=== PATIENT | female | born 1965 | race Caucasian/White ===

== ENCOUNTER → 2024-01-15 07:01 | Outpatient (REF) | payer BC, SELFPAY ==
[2024-01-15 09:58] LABS: % Basophils 0.7 % (0-2); % Eosinophils 4.6 % (0-6); % Immature Granulocytes 0.6 % (0-0.5); % Lymphocytes 11.3 % (20.5-51.1); % Monocytes 12.9 % (1.7-9.3); % Neutrophils 69.9 % (42.2-75.2); Absolute Basophils 0.1 10^3/uL (0-0.2); Absolute Eosinophils 0.3 10^3/uL (0-0.7); Absolute Lymphocytes 0.8 10^3/uL (1.2-3.4); Absolute Monocytes 0.9 10^3/uL (0.1-0.6); Absolute Neutrophils 4.9 10^3/uL (1.4-6.5); Hematocrit 45.1 % (37.0-47.0); Hemoglobin 14.8 g/dL (12.0-16.0); Mean Corp Hgb Conc. 32.8 g/dL (33.0-37.0); Mean Corpuscular Hgb 29.3 pg (27.0-31.0); Mean Corpuscular Volume 89.3 fL (81.0-99.0); Mean Platelet Volume 10.3 fL (7.4-10.4); Nucleated Red Blood Cells % 0 %; Platelet Count 303 10^3/uL (130-400); Red Blood Cell Count 5.05 10^6/uL (4.20-5.40); Red Cell Dist. Width 13.2 % (11.5-14.5)
[2024-01-15 10:30] LABS: ALT (SGPT) 35 U/L (0-35); AST (SGOT) 42 U/L (14-36); Alkaline Phosphatase 108 U/L (38-126); Blood Urea Nitrogen 14 mg/dl (7-17); Carbon Dioxide 27 mmol/L (22-30); Chloride 101 mmol/L (98-107); Creatine Phosphokinase 238 U/L (30-135); Glucose 102 mg/dl (70-99); Potassium 4.6 mmol/L (3.5-5.1); Sodium 135 mmol/L (135-145); Total Bilirubin 0.4 mg/dl (0.2-1.3); Total Protein 7.3 g/dl (6.3-8.2); eGFR > 60.00
[2024-01-15 10:42] LABS: Vitamin D, 25-OH*** 19.1 ng/mL (30-80)
[2024-01-15 10:46] LABS: Erythrocyte Sed Rate 26 mm/hour (0-20)
== END ==
LOC: HWLAB 07:01
PROVIDERS: ATTENDING PHYSICIAN Internal Medicine Rheumatology; FAMILY PHYSICIAN Internal Medicine
DX: E55.9 Vitamin D deficiency, unspecified (principal); M33.20 Polymyositis, organ involvement unspecified; M35.00 Sjogren syndrome, unspecified; R74.8 Abnormal levels of other serum enzymes
CPT/HCPCS: 36415; 80053; 82085; 82306; 82550; 85025; 85652; 86140

== ENCOUNTER → 2024-03-18 15:39 | Outpatient (REF) | payer BC, SELFPAY | LOC: HWRCS 15:39 | PROVIDERS: ATTENDING PHYSICIAN Nurse Practitioner Acute Care | DX: J84.9 Interstitial pulmonary disease, unspecified (principal) | CPT/HCPCS: 93306 ==

== ENCOUNTER → 2024-06-10 09:48 | Outpatient (REF) | payer BC, SELFPAY ==
[2024-06-10 10:55] LABS: % Basophils 0.8 % (0-2); % Eosinophils 5.2 % (0-6); % Immature Granulocytes 0.8 % (0-0.5); % Lymphocytes 12.7 % (20.5-51.1); % Monocytes 12.8 % (1.7-9.3); % Neutrophils 67.7 % (42.2-75.2); Absolute Basophils 0.1 10^3/uL (0-0.2); Absolute Eosinophils 0.4 10^3/uL (0-0.7); Absolute Immature Granulocytes 0.1 10^3/uL (0-0.05); Absolute Lymphocytes 0.9 10^3/uL (1.2-3.4); Absolute Monocytes 0.9 10^3/uL (0.1-0.6); Hematocrit 41.9 % (37.0-47.0); Hemoglobin 13.8 g/dL (12.0-16.0); Mean Corp Hgb Conc. 32.9 g/dL (33.0-37.0); Mean Corpuscular Hgb 29.1 pg (27.0-31.0); Mean Corpuscular Volume 88.2 fL (81.0-99.0); Mean Platelet Volume 9.4 fL (7.4-10.4); Nucleated Red Blood Cells % 0 %; Platelet Count 338 10^3/uL (130-400); Red Blood Cell Count 4.75 10^6/uL (4.20-5.40); Red Cell Dist. Width 13.2 % (11.5-14.5); White Blood Cell Count 7.3 10^3/uL (4.8-10.8)
[2024-06-10 11:09] LABS: Erythrocyte Sed Rate 32 mm/hour (0-20)
[2024-06-10 11:54] LABS: ALT (SGPT) 23 U/L (0-35); AST (SGOT) 33 U/L (14-36); Albumin 4.4 g/dl (3.5-5.0); Alkaline Phosphatase 102 U/L (38-126); Blood Urea Nitrogen 10 mg/dl (7-17); Calcium 10.1 mg/dl (8.4-10.2); Carbon Dioxide 25 mmol/L (22-30); Chloride 99 mmol/L (98-107); Creatine Phosphokinase 104 U/L (30-135); Glucose 82 mg/dl (70-99); Potassium 4.2 mmol/L (3.5-5.1); Sodium 140 mmol/L (135-145); Total Bilirubin 0.6 mg/dl (0.2-1.3); Total Protein 7.2 g/dl (6.3-8.2); eGFR > 60.00
== END ==
LOC: HWLAB 09:48
PROVIDERS: ATTENDING PHYSICIAN Internal Medicine Rheumatology; FAMILY PHYSICIAN Internal Medicine
DX: M33.20 Polymyositis, organ involvement unspecified (principal)
CPT/HCPCS: 36415; 80053; 82550; 85025; 85652; 86140

== ENCOUNTER → 2024-09-29 10:38 | Outpatient (REF) | payer BC, SELFPAY ==
[2024-09-29 15:37] LABS: ALT (SGPT) 29 U/L (0-35); AST (SGOT) 35 U/L (14-36); Albumin 3.9 g/dl (3.5-5.0); Alkaline Phosphatase 90 U/L (38-126); Blood Urea Nitrogen 10 mg/dl (7-17); Calcium 9.6 mg/dl (8.4-10.2); Carbon Dioxide 29 mmol/L (22-30); Chloride 98 mmol/L (98-107); Glucose 93 mg/dl (70-99); Potassium 3.9 mmol/L (3.5-5.1); Sodium 134 mmol/L (135-145); Total Bilirubin 0.5 mg/dl (0.2-1.3); Total Protein 6.8 g/dl (6.3-8.2); eGFR > 60.00
[2024-09-29 15:47] LABS: Creatine Phosphokinase 239 U/L (30-135)
[2024-09-29 15:58] LABS: % Basophils 0.6 % (0-2); % Eosinophils 4.3 % (0-6); % Immature Granulocytes 0.5 % (0-0.5); % Lymphocytes 8.6 % (20.5-51.1); % Monocytes 12.8 % (1.7-9.3); % Neutrophils 73.2 % (42.2-75.2); Absolute Basophils 0.1 10^3/uL (0-0.2); Absolute Eosinophils 0.4 10^3/uL (0-0.7); Absolute Lymphocytes 0.7 10^3/uL (1.2-3.4); Absolute Monocytes 1.1 10^3/uL (0.1-0.6); Absolute Neutrophils 6.2 10^3/uL (1.4-6.5); Hematocrit 45.8 % (37.0-47.0); Hemoglobin 14.3 g/dL (12.0-16.0); Mean Corp Hgb Conc. 31.2 g/dL (33.0-37.0); Mean Corpuscular Hgb 29.1 pg (27.0-31.0); Mean Corpuscular Volume 93.1 fL (81.0-99.0); Mean Platelet Volume 9.7 fL (7.4-10.4); Nucleated Red Blood Cells % 0 %; Platelet Count 292 10^3/uL (130-400); Red Blood Cell Count 4.92 10^6/uL (4.20-5.40); Red Cell Dist. Width 13.2 % (11.5-14.5); White Blood Cell Count 8.5 10^3/uL (4.8-10.8)
[2024-09-29 16:03] LABS: Vitamin D, 25-OH*** 25.8 ng/mL (30-80)
[2024-09-29 16:36] LABS: Erythrocyte Sed Rate 25 mm/hour (0-20)
== END ==
LOC: HWLAB 10:38
PROVIDERS: ATTENDING PHYSICIAN Internal Medicine Rheumatology; FAMILY PHYSICIAN Internal Medicine
DX: E55.9 Vitamin D deficiency, unspecified (principal); M33.20 Polymyositis, organ involvement unspecified; M35.00 Sjogren syndrome, unspecified; M81.0 Age-related osteoporosis without current pathological fracture
CPT/HCPCS: 36415; 80053; 82306; 82550; 85025; 85652; 86140

== ENCOUNTER → 2025-03-02 06:18 | Outpatient (REF) | payer BC, SELFPAY ==
[2025-03-02 09:37] LABS: % Basophils 0.5 % (0-2); % Immature Granulocytes 0.4 % (0-0.5); % Lymphocytes 5.9 % (20.5-51.1); % Monocytes 6.9 % (1.7-9.3); % Neutrophils 83.3 % (42.2-75.2); Absolute Basophils 0.1 10^3/uL (0-0.2); Absolute Eosinophils 0.3 10^3/uL (0-0.7); Absolute Lymphocytes 0.7 10^3/uL (1.2-3.4); Absolute Monocytes 0.8 10^3/uL (0.1-0.6); Absolute Neutrophils 9.2 10^3/uL (1.4-6.5); Hematocrit 43.5 % (37.0-47.0); Hemoglobin 13.9 g/dL (12.0-16.0); Mean Corpuscular Hgb 28.5 pg (27.0-31.0); Mean Corpuscular Volume 89.3 fL (81.0-99.0); Nucleated Red Blood Cells % 0 %; Platelet Count 363 10^3/uL (130-400); Red Blood Cell Count 4.87 10^6/uL (4.20-5.40); Red Cell Dist. Width 13.6 % (11.5-14.5)
[2025-03-02 11:00] LABS: ALT (SGPT) 16 U/L (0-35); AST (SGOT) 23 U/L (14-36); Albumin 3.9 g/dl (3.5-5.0); Alkaline Phosphatase 96 U/L (38-126); Blood Urea Nitrogen 9 mg/dl (7-17); Calcium 9.8 mg/dl (8.4-10.2); Carbon Dioxide 26 mmol/L (22-30); Chloride 103 mmol/L (98-107); Creatine Phosphokinase 61 U/L (30-135); Glucose 100 mg/dl (70-99); Potassium 4.7 mmol/L (3.5-5.1); Sodium 139 mmol/L (135-145); Total Bilirubin 0.6 mg/dl (0.2-1.3); Total Protein 6.9 g/dl (6.3-8.2); eGFR > 60.00
[2025-03-02 11:37] LABS: Erythrocyte Sed Rate 37 mm/hour (0-20)
== END ==
LOC: HWLAB 06:18
PROVIDERS: ATTENDING PHYSICIAN Internal Medicine Rheumatology; FAMILY PHYSICIAN Internal Medicine
DX: M33.20 Polymyositis, organ involvement unspecified (principal); M35.00 Sjogren syndrome, unspecified
CPT/HCPCS: 36415; 80053; 82550; 85025; 85652; 86140

== ENCOUNTER 2025-03-29 07:01 | Emergency (ER) | payer BC, SELFPAY ==
[2025-03-29 07:02] VITALS: BP 110/65
[2025-03-29 07:18] VITALS: BP 136/74
[2025-03-29 07:21] VITALS: BMI 18.3
--- NOTE | 2025-03-29 07:45 | ED.GENMED ---
History of Present Illness
<Madhav Rivers MD - Last Filed: 03/29/25 09:57>
General
Chief Complaint: Breathing Problem
Time Seen by Provider: 03/29/25 07:16
History of Present Illness
History of Present Illness:
59yo f hx of htn, Sjogrens, ILD. Woke up this AM with sharp midline/r sided scapular pain. Worse with deep breath. on 4L NC O2 at baseline for her lung disease. No fevers/chills. No new cough.
Phy Exam
<KATHLEEN Suh - Last Filed: 03/29/25 11:54>
General Physical Exam
General Presentation: well appearing
General age: appears stated age
General Skin: warm and dry
General Habitus: elderly
General Mental: alert
Cardiovascular Exam
Cardiovascular Exam: regular rate/rhythm, tachycardia and other (occasional extrasystoles)
Pulmonary Exam
Pulmonary Exam: no respiratory distress, chest non tender and other (crackles primarily in lower bilateral bases)
Oxygen Status: oxygen 3 liters via NC (at baseline)
Cough: non productive cough (at baseline)
Breath Sounds: Crackles: left lower and right lower
Gastrointestinal Exam
Gastrointestinal Exam: normal bowel sounds, non tender, soft, non distended and no cva tenderness
Neurological Exam
Neurological Exam: alert and oriented x3
Musculoskeletal Exam
Musculoskeletal Exam: full ROM and back pain
Skin Exam
Skin Exam: normal color
Scores
<KATHLEEN Suh - Last Filed: 03/29/25 11:54>
Heart Failure Risk
Heart Failure Risk Score: Not Applicable
Course
<Madhav Rivers MD - Last Filed: 03/29/25 09:57>
Orders/Labs/Results
Orders:
Orders
03/29/25 07:06
ECG [Electrocardiogram (*1)] Urgent
Reason for Study: Shortness of Breath
03/29/25 07:07
EKG- Treatment ONCE
03/29/25 07:39
Complete Blood Count/With Diff Urgent
Comprehensive Metabolic Panel Urgent
D-Dimer Urgent
Troponin I Urgent
03/29/25 07:51
CR Chest - 2 Views Urgent
Comment:
Reason For Exam: CP
03/29/25 08:47
Urinalysis Reflex To Culture Urgent
Date Specimen was Collected: 03/29/25
Time Specimen was Collected: 08:41
Comment: clean catch
Urine Microscopic Reflex Cult Urgent
Urine Culture Urgent
FELICIA Source: U
Specimen Description:
Obtained by: Random
Date Specimen was Collected: 03/29/25
Time Specimen was Collected: 08:41
Abnormal Lab Results
03/29/25 03/29/25
07:39 08:47
WBC 19.2 H 10^3/uL
(4.8-10.8)
MCHC 31.8 L g/dL
(33.0-37.0)
Abs Immat Gran (auto) 0.1 H 10^3/uL
(0-0.05)
Absolute Neuts (auto) 16.7 H 10^3/uL
(1.4-6.5)
Absolute Lymphs (auto) 0.5 L 10^3/uL
(1.2-3.4)
Absolute Monos (auto) 1.5 H 10^3/uL
(0.1-0.6)
Neutrophils % 87.2 H %
(42.2-75.2)
Lymphocytes % 2.8 L %
(20.5-51.1)
BUN 6 L mg/dl
(7-17)
Creatinine 0.4 L mg/dL
(0.6-1.0)
Glucose 101 H mg/dl
(70-99)
Leukocyte Esterase Rfl 2+ A
(Negative)
03/29/25 07:39
03/29/25 07:39
Vital Signs
Initial and Last Documented VS:
Initial Vital Signs
Temp Pulse Resp BP Pulse Ox
97.8 F 103 20 110/65 95
03/29/25 07:02 03/29/25 07:02 03/29/25 07:02 03/29/25 07:02 03/29/25 07:02
Last Documented Vital Signs
Temp Pulse Resp BP Pulse Ox
97.8 F 93 36 105/63 98
03/29/25 07:02 03/29/25 10:58 03/29/25 10:58 03/29/25 10:58 03/29/25 10:45
<KATHLEEN Suh - Last Filed: 03/29/25 11:54>
Orders/Labs/Results
Orders:
Orders
03/29/25 07:06
ECG [Electrocardiogram (*1)] Urgent
Reason for Study: Shortness of Breath
03/29/25 07:07
EKG- Treatment ONCE
03/29/25 07:39
Complete Blood Count/With Diff Urgent
Comprehensive Metabolic Panel Urgent
D-Dimer Urgent
Troponin I Urgent
03/29/25 07:51
CR Chest - 2 Views Urgent
Comment:
Reason For Exam: CP
03/29/25 08:47
Urinalysis Reflex To Culture Urgent
Date Specimen was Collected: 03/29/25
Time Specimen was Collected: 08:41
Comment: clean catch
Urine Microscopic Reflex Cult Urgent
Urine Culture Urgent
FELICIA Source: U
Specimen Description:
Obtained by: Random
Date Specimen was Collected: 03/29/25
Time Specimen was Collected: 08:41
Abnormal Lab Results
03/29/25 03/29/25
07:39 08:47
WBC 19.2 H 10^3/uL
(4.8-10.8)
MCHC 31.8 L g/dL
(33.0-37.0)
Abs Immat Gran (auto) 0.1 H 10^3/uL
(0-0.05)
Absolute Neuts (auto) 16.7 H 10^3/uL
(1.4-6.5)
Absolute Lymphs (auto) 0.5 L 10^3/uL
(1.2-3.4)
Absolute Monos (auto) 1.5 H 10^3/uL
(0.1-0.6)
Neutrophils % 87.2 H %
(42.2-75.2)
Lymphocytes % 2.8 L %
(20.5-51.1)
BUN 6 L mg/dl
(7-17)
Creatinine 0.4 L mg/dL
(0.6-1.0)
Glucose 101 H mg/dl
(70-99)
Leukocyte Esterase Rfl 2+ A
(Negative)
03/29/25 07:39
03/29/25 07:39
Vital Signs
Initial and Last Documented VS:
Initial Vital Signs
Temp Pulse Resp BP Pulse Ox
97.8 F 103 20 110/65 95
03/29/25 07:02 03/29/25 07:02 03/29/25 07:02 03/29/25 07:02 03/29/25 07:02
Last Documented Vital Signs
Temp Pulse Resp BP Pulse Ox
97.8 F 93 36 105/63 98
03/29/25 07:02 03/29/25 10:58 03/29/25 10:58 03/29/25 10:58 03/29/25 10:45
<Madhav Rivers MD - Last Filed: 03/29/25 09:57>
*Pulse Oximetry
SaO2: 98
Nasal Cannula flow liters per minute: 2
<KATHLEEN Suh - Last Filed: 03/29/25 11:54>
*Critical Care Note
Total Time (30-74mins, 75-104mins- exclusive of procedures): Not Applicable
ED Attending Note
<Madhav Rivers MD - Last Filed: 03/29/25 09:57>
ED Attending Note
ED Attending Note:
Patient presents with pleuritic right-sided scapular pain worse with movement and deep inhalation. She is chronically ill-appearing but is at her baseline respiratory status. She is at her baseline oxygen requirement. Chest x-ray without acute
disease. Dimer is negative and she is low risk by Wells making PE very unlikely. CXR with some nodular findings. Patient with leukcytosis. Cough is chronic and unchanged. However, given these findings, will treat with antibiotics for a possible
CAP. Will instruct to follow up with her doctor for continued outpatient management
-
Portions of this chart may have been created with voice recognition software.� Occasional wrong word or��sound alike� substitutions may have occurred due to the inherent limitations of voice recognition software.
Discharge Plan
Departure
Patient Disposition: Home (Routine Discharge)
Date of Disposition: 03/29/25
Time of Disposition: 10:38
Patient with high blood pressure during this ER visit?: No
Discharge Problem:
Pneumonia, Pain in scapula
Instructions: Community-acquired pneumonia in adults
Prescriptions:
New
azithromycin 250 mg tablet
250 mg PO DAILY Qty: 6 0RF
amoxicillin-pot clavulanate 875-125 mg tablet
1 tab PO BID Qty: 20 0RF
Referrals:
Caio Coyne, [Family Provider, Internal Medicine]
Stand Alone Forms: Return to Work
Activity Restrictions/Additional Instructions:
please follow up closely with your primary doctor for recheck in the next few days
we are treating you for pneumonia given your Xray findings and elevated white blood cell count
return to the ER with worsening shortness of breath or new or concerning symptoms
Interventions
Interventions:
*Risk Screen - Suicide Last Done: 03/29/25 07:02
*General Assessment Last Done: 03/29/25 07:25
*Neglect/Abuse Screening Last Done: 03/29/25 07:02
*ED- Fall Risk Assessment Last Done: 03/29/25 07:25
*ED COVID-19 Vaccine History Last Done: 03/29/25 07:25
*Nursing Disposition Last Done: 03/29/25 11:03
ED- Cardiac Assessment Last Done: 03/29/25 07:24
ED- Pulmonary Assessment Last Done: 03/29/25 07:24
Discharge Date and Time
Discharge Date/Time: 03/29/25 11:17
Print Language: OCCITAN
[2025-03-29 07:55] LABS: % Basophils 0.3 % (0-2); % Eosinophils 1.2 % (0-6); % Immature Granulocytes 0.5 % (0-0.5); % Lymphocytes 2.8 % (20.5-51.1); % Neutrophils 87.2 % (42.2-75.2); Absolute Basophils 0.1 10^3/uL (0-0.2); Absolute Eosinophils 0.2 10^3/uL (0-0.7); Absolute Immature Granulocytes 0.1 10^3/uL (0-0.05); Absolute Lymphocytes 0.5 10^3/uL (1.2-3.4); Absolute Monocytes 1.5 10^3/uL (0.1-0.6); Absolute Neutrophils 16.7 10^3/uL (1.4-6.5); Hemoglobin 12.7 g/dL (12.0-16.0); Mean Corp Hgb Conc. 31.8 g/dL (33.0-37.0); Mean Corpuscular Hgb 27.4 pg (27.0-31.0); Mean Corpuscular Volume 86.4 fL (81.0-99.0); Mean Platelet Volume 9.3 fL (7.4-10.4); Nucleated Red Blood Cells % 0 %; Platelet Count 384 10^3/uL (130-400); Red Blood Cell Count 4.63 10^6/uL (4.20-5.40); Red Cell Dist. Width 13.3 % (11.5-14.5); White Blood Cell Count 19.2 10^3/uL (4.8-10.8)
[2025-03-29 08:00] VITALS: BP 115/66
[2025-03-29 08:10] LABS: ALT (SGPT) 17 U/L (0-35); AST (SGOT) 20 U/L (14-36); Albumin 3.6 g/dl (3.5-5.0); Alkaline Phosphatase 98 U/L (38-126); Blood Urea Nitrogen 6 mg/dl (7-17); Calcium 9.5 mg/dl (8.4-10.2); Carbon Dioxide 30 mmol/L (22-30); Chloride 100 mmol/L (98-107); Estimated Creatinine Clearance 82 ml/min; Glucose 101 mg/dl (70-99); Potassium 4.1 mmol/L (3.5-5.1); Sodium 138 mmol/L (135-145); Total Bilirubin 0.6 mg/dl (0.2-1.3); Total Protein 6.3 g/dl (6.3-8.2); eGFR > 60.00
[2025-03-29 08:19] LABS: Troponin I < 0.012 ng/ml
[2025-03-29 08:51] LABS: D-Dimer 0.36 ug/mlFEU (0.00-0.50)
[2025-03-29 09:00] VITALS: BP 102/58
[2025-03-29 09:06] LABS: Urine Albumin Negative (Neg - Trace); Urine Bilirubin Negative (Negative); Urine Character Clear (Clear); Urine Color Yellow; Urine Glucose Negative (Negative); Urine Ketone Negative (Negative); Urine Leukocyte 2+ (Negative); Urine Nitrite Negative (Negative); Urine Occult Blood Negative (Negative); Urine Specific Gravity 1.015 (<1.030); Urine Urobilinogen Negative (Neg - 1+); Urine pH 6.5 (5.0-9.0)
[2025-03-29 09:29] LABS: Urine Red Blood Cell 0-2 /HPF (0-2); Urine Squamous Cell 0-2 /LPF (Few)
[2025-03-29 10:00] VITALS: BP 118/64
[2025-03-29 10:58] VITALS: BP 105/63
== END 2025-03-29 11:17 | disposition home or self-care (01) ==
LOC: EMR 07:01
PROVIDERS: EMERGENCY PHYSICIAN Emergency Medicine; FAMILY PHYSICIAN Internal Medicine
DX: J18.9 Pneumonia, unspecified organism (principal); M25.511 Pain in right shoulder; I10 Essential (primary) hypertension; M35.00 Sjogren syndrome, unspecified
CPT/HCPCS: 99283; 71046; 80053; 81003; 81015; 84484; 85025; 85379; 87086; 93005

== ENCOUNTER → 2025-06-29 07:02 | Outpatient (REF) | payer BC, SELFPAY ==
[2025-06-29 10:13] LABS: Hematocrit 46.6 % (37.0-47.0); Hemoglobin 14.7 g/dL (12.0-16.0); Mean Corp Hgb Conc. 31.5 g/dL (33.0-37.0); Mean Corpuscular Volume 90.1 fL (81.0-99.0); Nucleated Red Blood Cells % 0 %; Platelet Count 338 10^3/uL (130-400); Red Cell Dist. Width 15.4 % (11.5-14.5)
[2025-06-29 10:18] LABS: ALT (SGPT) 23 U/L (0-35); AST (SGOT) 26 U/L (14-36); Albumin 4.5 g/dl (3.5-5.0); Alkaline Phosphatase 90 U/L (38-126); Blood Urea Nitrogen 16 mg/dl (7-17); Calcium 10.2 mg/dl (8.4-10.2); Carbon Dioxide 25 mmol/L (22-30); Chloride 103 mmol/L (98-107); Glucose 99 mg/dl (70-99); Potassium 4.4 mmol/L (3.5-5.1); Sodium 140 mmol/L (135-145); Total Protein 7.4 g/dl (6.3-8.2); eGFR > 60.00
[2025-06-29 10:56] LABS: C-Reactive Protein 21.30 mg/L (0.0-10.00)
== END ==
LOC: HWLAB 07:02
PROVIDERS: ATTENDING PHYSICIAN Internal Medicine Rheumatology; FAMILY PHYSICIAN Internal Medicine
DX: M33.20 Polymyositis, organ involvement unspecified (principal); M35.00 Sjogren syndrome, unspecified
CPT/HCPCS: 36415; 80053; 82550; 85025; 85652; 86140

== ENCOUNTER → 2025-07-25 08:12 | Outpatient (REF) | payer BC, SELFPAY | LOC: HWRCS 08:12 | PROVIDERS: ATTENDING PHYSICIAN Internal Medicine Pulmonary Disease; FAMILY PHYSICIAN Internal Medicine | DX: J84.9 Interstitial pulmonary disease, unspecified (principal) | CPT/HCPCS: 93306 ==

== ENCOUNTER → 2025-09-25 16:21 | Outpatient (REF) | payer BC, SELFPAY ==
[2025-09-25 16:47] LABS: Hematocrit 47.1 % (37.0-47.0); Hemoglobin 15.0 g/dL (12.0-16.0); Mean Corp Hgb Conc. 31.8 g/dL (33.0-37.0); Mean Corpuscular Volume 85.3 fL (81.0-99.0); Nucleated Red Blood Cells % 0 %; Platelet Count 275 10^3/uL (130-400); Red Cell Dist. Width 15.0 % (11.5-14.5)
[2025-09-25 17:17] LABS: ALT (SGPT) 19 U/L (0-35); AST (SGOT) 31 U/L (14-36); Albumin 4.2 g/dl (3.5-5.0); Alkaline Phosphatase 104 U/L (38-126); Blood Urea Nitrogen 12 mg/dl (7-17); Calcium 9.5 mg/dl (8.4-10.2); Carbon Dioxide 26 mmol/L (22-30); Chloride 98 mmol/L (98-107); Glucose 88 mg/dl (70-99); Potassium 4.2 mmol/L (3.5-5.1); Sodium 135 mmol/L (135-145); Total Protein 7.2 g/dl (6.3-8.2); eGFR > 60.00
== END ==
LOC: REG 16:21
PROVIDERS: ATTENDING PHYSICIAN Internal Medicine Critical Care Medicine; FAMILY PHYSICIAN Internal Medicine; OTHER PHYSICIAN Internal Medicine Pulmonary Disease
DX: I27.21 Secondary pulmonary arterial hypertension (principal); Z79.899 Other long term (current) drug therapy; J84.9 Interstitial pulmonary disease, unspecified
CPT/HCPCS: 36415; 80053; 85025